=== PATIENT | female | born 1975 | race Caucasian/White ===

== ENCOUNTER → 2019-12-24 | Outpatient (CLI) | payer OTHER ==
[~2019-12-24] MED LIST: ACET473E5; ERYT333T4; GFN600TCR; LISI1TAB6 PO; SRTR100T PO; TRZ100T PO
== END ==
LOC: LABNPT 08:59
PROVIDERS: ATTEND Family Medicine
DX: Z11.59 Encounter for screening for other viral diseases (principal)

== ENCOUNTER 2020-02-16 21:46 | Emergency (ER) | payer OTHER ==
[~2020-02-16] VITALS: Ht 160 cm; Wt 122.4 kg
[2020-02-16 22:31] LABS: BASOPHILS % (AUTO) 0 % (0-10); EOSINOPHILS % (AUTO) 0 % (0-10); HEMATOCRIT 27 % (35-52); HEMOGLOBIN 7.3 g/dL (11.5-16.0); LYMPHOCYTES # (AUTO) 0.6 10^3/uL (1.0-4.0); LYMPHOCYTES % (AUTO) 5 % (12-44); MEAN CORPUSCULAR HEMOGLOBIN 19 pg (25-34); MEAN CORPUSCULAR HGB CONC 27 g/dL (32-36); MEAN CORPUSCULAR VOLUME 71 fL (80-99); MEAN PLATELET VOLUME 9.9 fL (9.0-12.2); MONOCYTES # (AUTO) 0.3 10^3/uL (0.0-1.0); MONOCYTES % (AUTO) 2 % (0-12); NEUTROPHILS # (AUTO) 10.1 10^3/uL (1.8-7.8); NEUTROPHILS % (AUTO) 91 % (42-75); PLATELET COUNT 339 10^3/uL (130-400); WHITE BLOOD COUNT 11.1 10^3/uL (4.3-11.0)
[2020-02-16 22:36] LABS: ALBUMIN 4.1 GM/DL (3.2-4.5); CHLORIDE 107 MMOL/L (98-107); SODIUM 140 MMOL/L (135-145)
[2020-02-16 22:37] LABS: CALCIUM 8.4 MG/DL (8.5-10.1)
[2020-02-16 22:38] LABS: GLUCOSE 172 MG/DL (70-105)
[2020-02-16 22:40] LABS: BILIRUBIN,TOTAL 0.3 MG/DL (0.1-1.0); CARBON DIOXIDE 21 MMOL/L (21-32)
[2020-02-16 22:42] LABS: ALKALINE PHOSPHATASE 73 U/L (40-136); CREATININE SERUM 0.71 MG/DL (0.60-1.30); GFR ESTIMATED > 60
[2020-02-16 22:43] LABS: BUN/CREATININE RATIO 13
[2020-02-16 22:45] LABS: ALANINE AMINOTRANSFERASE 22 U/L (0-55)
[2020-02-16 23:07] LABS: NEUTROPHILS % (MANUAL) 88 %
[2020-02-16 23:08] LABS: ANISOCYTOSIS MARKED; EOSINOPHILS % (MANUAL) 2 %; HYPOCHROMASIA MARKED; LYMPHOCYTES % (MANUAL) 5 %; MONOCYTES % (MANUAL) 5 %; POLYCHROMASIA SLIGHT
[2020-02-17] MEDS ORDERED: NS 100 ML (IVPB) BAG IV ONE
[2020-02-17] MEDS ORDERED: HOLD METFORMIN - RECEIVED CONTRAST 20 ML VIAL IV SCH
[2020-02-17] MEDS ORDERED: IOHEXOL 350 MG/ML 100 ML (OMNIPAQUE 350) VIAL IV ONE
--- NOTE | 2020-02-17 00:26 | ED Respiratory ---
General Chief Complaint: Respiratory Problems Stated Complaint: SOA/COUGH Nursing Triage Note: C/O SOA ESPECIALLY WITH ACTIVITY HAS BECOME WORSE THE LAST 3 DAYS. WAS DIAGNOSED WITH PNEUMONIA 2 WEEKS AGO AND HAD COVID 19 ON DECEMBER 21. STATES 2 ROUNDS OF ANTIBIOTIC AND STEROIDS WELL ALBUTEROL INHALER AND NEBULIZED TREATMENTS. VERBALIZES SHE HAS USED HER INHALER 5 TIMES SINCE 1500 THIS AFTERNOON. 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 She also has a burning sensation in her chest when she breathes with her respirator mask on. She was diagnosed with COVID-19 in early December. She was treated with steroids and antibiotics. She later developed pneumonia and was treated with a second round of antibiotics. She has had persistent shortness of breath despite these therapies. She is afebrile and has no increasing cough. She does have more difficulty when lying down flat and coughs up some clear/whitish sputum. Allergies and Home Medications Allergies Uncoded Allergies: PENICILLIN (Allergy, Unknown, 02/17/20) Home Medications Ferrous Sulfate 325 Mg Tablet, 325 MG PO BID WITH MEALS Prescribed by: CHAUNCEY NAVARRO on 02/17/20 0123 Hctz/Lisinopril 1 Each Tablet, 0.5 EACH PO DAILY Prescribed by: CHAUNCEY NAVARRO on 11/26/11 0839 Sertraline Hcl 100 Mg Tab, 100 MG PO DAILY, (Reported) Trazodone Hcl 100 Mg Tab, 100 MG PO HS, (Reported) Patient Home Medication List Home Medication List Reviewed: Yes Review of Systems Review of Systems Constitutional: no symptoms reported EENTM: no symptoms reported Respiratory: see HPI Cardiovascular: no symptoms reported Gastrointestinal: no symptoms reported Genitourinary: no symptoms reported : No Musculoskeletal: no symptoms reported Skin: no symptoms reported Psychiatric/Neurological: No Symptoms Reported Hematologic/Lymphatic: No Symptoms Reported Immunological/Allergic: no symptoms reported Past Gefgvpg-Icejve-Hxjkxy Hx Past Med/Social Hx: Reviewed Nursing Past Med/Soc Hx Patient Social History Alcohol Use: Denies Use Recreational Drug Use: No Recent Foreign Travel: No Contact w/Someone Who Travel: No Recent Infectious Disease Expo: No Recent Hopitalizations: No Physical Abuse: No Sexual Abuse: No Mistreated: No Fear: No Immunizations Up To Date Date of Influenza Vaccine: Jan 18, 2020 Seasonal Allergies Seasonal Allergies: No Past Medical History Surgeries: Yes (RIGHT LEG VENOUS STRIPPING) Respiratory: Yes (COVID 19 DEC 22, 2019, PNEUMONIA JAN 2020) Pneumonia Cardiac: Yes Hypertension Neurological: No : No Genitourinary: No Gastrointestinal: No Musculoskeletal: No Endocrine: Yes Diabetes, Non-Insulin dep HEENT: No Cancer: No Psychosocial: Yes Depression Blood Disorders: No Physical Exam Vital Signs - First Documented 02/16/20 02/17/20 21:53 01:35 Temp 37.7 Pulse 104 Resp 20 B/P (MAP) 202/105 (137) Pulse Ox 100 Capillary Refill : Less Than 3 Seconds Height: '" Weight: lbs. oz. 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, no motor/sensory deficits, alert, normal mood/affect, oriented x 3 Skin: normal color, warm/dry Progress/Results/Core Measures Suspected Sepsis Recent Fever Within 48 Hours: No Infection Criteria Present: Documented Infection New/Unexplained Altered Menta: No Sepsis Screen: No Definite Risk SIRS Temperature: Pulse: 104 Respiratory Rate: 20 Laboratory Tests 02/16/20 22:13: White Blood Count 11.1H Blood Pressure 202 /105 Mean: 137 Laboratory Tests 02/16/20 22:13: Creatinine 0.71, Platelet Count 339, Total Bilirubin 0.3 Results/Orders Lab Results Laboratory Tests Test 02/16/20 22:13 02/17/20 00:34 02/17/20 01:25 Range/Units White Blood Count 11.1 H 4.3-11.0 10^3/uL Red Blood Count 3.86 3.90 3.80-5.11 10^6/uL Hemoglobin 7.3 L 11.5-16.0 g/dL Hematocrit 27 L 35-52 % Mean Corpuscular Volume 71 L 80-99 fL Mean Corpuscular Hemoglobin 19 L 25-34 pg Mean Corpuscular Hemoglobin Concent 27 L 32-36 g/dL Red Cell Distribution Width 18.3 H 10.0-14.5 % Platelet Count 339 130-400 10^3/uL Mean Platelet Volume 9.9 9.0-12.2 fL Immature Granulocyte % (Auto) 1 % Neutrophils (%) (Auto) 91 H 42-75 % Lymphocytes (%) (Auto) 5 L 12-44 % Monocytes (%) (Auto) 2 0-12 % Eosinophils (%) (Auto) 0 0-10 % Basophils (%) (Auto) 0 0-10 % Neutrophils # (Auto) 10.1 H 1.8-7.8 10^3/uL Lymphocytes # (Auto) 0.6 L 1.0-4.0 10^3/uL Monocytes # (Auto) 0.3 0.0-1.0 10^3/uL Eosinophils # (Auto) 0.0 0.0-0.3 10^3/uL Basophils # (Auto) 0.0 0.0-0.1 10^3/uL Immature Granulocyte # (Auto) 0.1 0.0-0.1 10^3/uL Neutrophils % (Manual) 88 % Lymphocytes % (Manual) 5 % Monocytes % (Manual) 5 % Eosinophils % (Manual) 2 % Polychromasia SLIGHT Hypochromasia MARKED Anisocytosis MARKED D-Dimer 1.56 H 0.00-0.49 UG/ML Sodium Level 140 135-145 MMOL/L Potassium Level 4.0 3.6-5.0 MMOL/L Chloride Level 107 98-107 MMOL/L Carbon Dioxide Level 21 21-32 MMOL/L Anion Gap 12 5-14 MMOL/L Blood Urea Nitrogen 9 7-18 MG/DL Creatinine 0.71 0.60-1.30 MG/DL Estimat Glomerular Filtration Rate > 60 BUN/Creatinine Ratio 13 Glucose Level 172 H 70-105 MG/DL Calcium Level 8.4 L 8.5-10.1 MG/DL Corrected Calcium 8.3 L 8.5-10.1 MG/DL Total Bilirubin 0.3 0.1-1.0 MG/DL Aspartate Amino Transf (AST/SGOT) 17 5-34 U/L Alanine Aminotransferase (ALT/SGPT) 22 0-55 U/L Alkaline Phosphatase 73 40-136 U/L Troponin I 0.034 H < 0.028 <0.028 NG/ML C-Reactive Protein High Sensitivity 0.86 H 0.00-0.50 MG/DL B-Type Natriuretic Peptide 107.2 H <100.0 PG/ML Total Protein 7.0 6.4-8.2 GM/DL Albumin 4.1 3.2-4.5 GM/DL Procalcitonin 0.01 <0.10 NG/ML Serum Test, Qualitative NEGATIVE NEGATIVE Absolute Reticulocyte Count 66 24-90 10e9/uL Percent Reticulocyte Count 1.70 0.50-2.40 % Micro Results Microbiology 02/16/20 Influenza Types A,B Antigen (JOE) - Final, Complete My Orders Orders - CHAUNCEY LEOS MD Cbc With Automated Diff (02/16/20 21:49) Comprehensive Metabolic Panel (02/16/20 21:49) Hs C Reactive Protein (02/16/20 21:49) Fibrin Degradation Products (02/16/20 21:49) Procalcitonin (Pct) (02/16/20 21:49) Influenza A And B Antigens (02/16/20 21:49) Ed Iv/Invasive Line Start (02/16/20 21:49) BNP (02/16/20 22:33) Troponin I (02/16/20 22:33) Ekg Tracing (02/16/20 22:33) Chest Pa/Lat (2 View) (02/16/20 22:36) Manual Differential (02/16/20 22:13) Troponin I (02/17/20 23:23) Hcg,Qualitative Serum (02/16/20 23:41) Iohexol Injection (Omnipaque 350 Mg/Ml 1 (02/17/20 00:00) Received Contrast (Hold Metformin- Contr (02/17/20 00:00) Ns (Ivpb) (Sodium Chloride 0.9% Ivpb Bag (02/17/20 00:00) Ct Angio Chest W (02/17/20 00:01) Iron Tibc %Sat & Ferritin (02/17/20 01:19) Reticulocyte Count (02/17/20 01:19) Medications Given in ED Current Medications Medications Dose Ordered Sig/Jennifer Route Start Time Stop Time Status Last Admin Dose Admin Iohexol 100 ml ONCE ONCE IV 02/17/20 00:00 02/17/20 00:02 DC 02/17/20 00:30 100 ML Sodium Chloride 80 ml ONCE ONCE IV 02/17/20 00:00 02/17/20 00:02 DC 02/17/20 00:30 80 ML Vital Signs/I&O 02/16/20 02/17/20 21:53 01:35 Temp 37.7 37.0 Pulse 104 97 Resp 20 18 B/P (MAP) 202/105 (137) 144/93 (137) Pulse Ox 100 Capillary Refill : Less Than 3 Seconds Blood Pressure Mean: 137 Progress Note #1: Time: 00:23 Progress Note D-dimer was elevated. CT angiogram is pending. Troponin was also slightly elevated. A repeat troponin is pending. She was also found to be significantly anemic with a hemoglobin of 7.3. She denies any blood loss other than her usual periods. Progress Note #2: Progress Note Repeat troponin was negative. Chest pain was only pleuritic in nature. Cardiac etiology for her symptoms is unlikely. She was found to be anemic with hemoglobin of 7.3. Because of the anemia is uncertain and I emphasized the need to continue this work-up in the outpatient setting. Iron studies and a reticulocyte count were ordered. CT angiogram revealed no pulmonary emboli. Patient was started on iron and ultimately discharged home for continued outpatient evaluation. ECG Initial ECG Impression Date: Feb 16, 2020 Initial ECG Impression Time: 22:58 Initial ECG Rate: 104 Initial ECG Rhythm: S.Tach Comment Sinus tachycardia with no ST elevation. Repolarization abnormality with subtle ST changes and an inverted T wave in lateral leads. Diagnostic Imaging Diagonstic Imaging: Xray Plain Films/CT/US/NM/MRI: chest Comments Chest x-ray viewed by me and report reviewed. Mild bibasilar infiltrates noted. Diagonstic Imaging: CT Plain Films/CT/US/NM/MRI: chest Comments CT angiogram of the chest reviewed by me and report reviewed. See report below: NAME: SAVANAH WONG MED REC#: [id number] PT STATUS: DEP ER : 1975 PHYSICIAN: CHAUNCEY LEOS MD ADMIT DATE: 02/16/20/ER Draft Date of Exam:02/17/20 CT ANGIO CHEST W PROCEDURE: CT angiography of the chest with contrast. TECHNIQUE: Multiple contiguous axial images were obtained through the chest after uneventful bolus administration of intravenous contrast. 3D reconstructed CTA MIP acquisitions were also performed. Auto Exposure Controls were utilized during the CT exam to meet ALARA standards for radiation dose reduction. INDICATION: Shortness of air. COMPARISON: Chest radiograph, 02/16/2020. FINDINGS: Examination limited by respiratory motion. No large or central pulmonary artery filling defects. No thoracic aortic aneurysm. Cardiomegaly. No pericardial effusion. No mediastinal, hilar or axillary lymphadenopathy is identified. Small bilateral pleural effusions, greater on the right. Mild atelectasis in the lung bases. There is also some interlobular septal thickening in the lung bases suggesting fluid overload. The visualized upper abdominal contents are unremarkable. No acute osseous findings. IMPRESSION: 1. No large or central pulmonary emboli. 2. Cardiomegaly, mild interlobular septal thickening in the lung bases and small bilateral pleural effusions suspicious for pulmonary edema. 3. Mild atelectasis in the lung bases. Although an infectious/inflammatory process could not be occluded, this is considered less likely. Dictated on workstation # [id number] Dict: 02/17/20 0647 Trans: 02/17/20 0653 [facility] [id number] Interpreted by: YEE SPRAGUE MD Departure Impression Primary Impression: Dyspnea on exertion Additional Impressions: Microcytic anemia Pleural effusion Pleuritic chest pain Disposition: HOME, SELF-CARE Condition: Stable Departure-Patient Inst. Decision time for Depature: 01:18 Referrals: SWAPNIL NIEVES MD (PCP/Family) Primary Care Physician Patient Instructions: Anemia Caused by Low Iron Add. Discharge Instructions: Follow-up with Dr. Nieves on Tuesday. You may need further investigation for the cause of your anemia. This may include endoscopy and referral to a surgeon. Because of the small pleural effusions, I also would suggest referral to a taxicab coordinator and possibly an echocardiogram. Start ferrous sulfate and take a multivitamin daily. Also eat a diet high in iron which might include red meats, leafy green vegetables, etc. Return to care if you have worsening symptoms. All discharge instructions reviewed with patient and/or family. Voiced unders tanding. Scripts Ferrous Sulfate (Ferrous Sulfate) 325 Mg Tablet 325 MG PO BID WITH MEALS, #120 TAB Prov: CHAUNCEY LEOS MD 02/17/20 Work/School Note: Work Release Form Date Seen in the Emergency Department: Feb 17, 2020 Return to Work: Feb 20, 2020 Restrictions: No Restrictions Copy Copies To 1: SWAPNIL NIEVES MD, JOSHUA T MD Feb 17, 2020 00:25
[2020-02-17] MEDS ORDERED: FERR325T18 PO (01:23)
[2020-02-17 01:32] LABS: RETICULOCYTE % 1.7 % (0.50-2.40)
[2020-02-17 01:35] VITALS: BP 144/93
--- NOTE | 2020-02-17 06:54 | Diagnostic Imaging Report ---
PROCEDURE: CT angiography of the chest with contrast. TECHNIQUE: Multiple contiguous axial images were obtained through the chest after uneventful bolus administration of intravenous contrast. 3D reconstructed CTA MIP acquisitions were also performed. Auto Exposure Controls were utilized during the CT exam to meet ALARA standards for radiation dose reduction. INDICATION: Shortness of air. COMPARISON: Chest radiograph, 02/16/2020. FINDINGS: Examination limited by respiratory motion. No large or central pulmonary artery filling defects. No thoracic aortic aneurysm. Cardiomegaly. No pericardial effusion. No mediastinal, hilar or axillary lymphadenopathy is identified. Small bilateral pleural effusions, greater on the right. Mild atelectasis in the lung bases. There is also some interlobular septal thickening in the lung bases suggesting fluid overload. The visualized upper abdominal contents are unremarkable. No acute osseous findings. IMPRESSION: 1. No large or central pulmonary emboli. 2. Cardiomegaly, mild interlobular septal thickening in the lung bases and small bilateral pleural effusions suspicious for pulmonary edema. 3. Mild atelectasis in the lung bases. Although an infectious/inflammatory process could not be occluded, this is considered less likely. Dictated by: Dictated on workstation # [id number]
--- NOTE | 2020-02-17 07:29 | Diagnostic Imaging Report ---
INDICATION: Shortness of breath. PA and lateral views of chest were obtained. No prior examinations are available for comparison. FINDINGS: There is cardiomegaly. There may be some minimal venous congestion. There is no pleural effusion or pneumothorax. Mediastinum is unremarkable. IMPRESSION: Cardiomegaly and questionable mild central pulmonary venous congestion. Dictated by: Dictated on workstation # [id number]
== END 2020-02-17 01:35 | disposition home or self-care (01) ==
LOC: EDUNIT# 21:46 → ER 21:48
DX: R06.09 Other forms of dyspnea (principal); D50.9 Iron deficiency anemia, unspecified; J90 Pleural effusion, not elsewhere classified; R07.81 Pleurodynia; I10 Essential (primary) hypertension; E66.9 Obesity, unspecified; F32.9 Major depressive disorder, single episode, unspecified; Z88.0 Allergy status to penicillin; Z68.42 Body mass index [BMI] 45.0-49.9, adult
CPT/HCPCS: 36415; 71046; 71275; 80053; 82728; 83540; 83880; 84145; 84484; 84703; 85007; 85027; 85045; 85379; 86141; 87804; 93005

== ENCOUNTER 2020-02-26 10:29 | Outpatient (RCR) | payer OTHER ==
[~2020-02-26 10:29] MED LIST changes: +FERR325T18 PO
[2020-02-26 10:45] VITALS: BP 200/110
[2020-02-26] MEDS ORDERED: FERRIC CARBOXYMALTOSE INJ 750 MG in NS (IVPB) 250 ML IV SCH (10:45)
== END 2020-05-26 | disposition home or self-care (01) ==
LOC: SDC 10:29
PROVIDERS: ATTEND Nurse Practitioner Family
DX: D50.9 Iron deficiency anemia, unspecified (principal)
CPT/HCPCS: 96365